=== PATIENT | male | born 1970 | race Caucasian/White ===

== ENCOUNTER 2017-12-06 12:18 | Emergency (ER) | payer BC ==
[~2017-12-06] VITALS: Ht 175.3 cm; Wt 92.6 kg
[~2017-12-06 12:18] MED LIST: ANT25 PO; [UNRECOGNIZED DRUG - CODE] OT
[2017-12-06 12:22] VITALS: TEMP 36.4; Ht 175.3 cm; Wt 92.6 kg
--- NOTE | 2017-12-06 12:34 | EMERGENCY ROOM VISIT NOTE ---
ED Visit Note First contact with patient: 12:33 CHIEF COMPLAINT: Headache HISTORY OF PRESENTING ILLNESS: This is a 47-year-old male who presents to the emergency department by private vehicle with his with complaints of left- sided headache for the past 2 weeks. Patient states his headache initially started after he went swimming and got some water in his left ear, he states that he shook his head vigorously to get the water out of his ear and then got a sharp pain in the left side of his head. He states the headaches have been intermittent, come and go, initially seemed to respond to ibuprofen, but became severely worse about a 4 days ago. Patient states they were on vacation and they have several physicians in their family, his wtjrcw-bf-fey prescribed him Augmentin which she started taking 6 days ago. He states about 4 days ago that the pain was very severe, and his adtozm-fv-dru prescribed him prednisone which he has been taking daily since Thursday. He states the prednisone seemed to help initially, but he is still getting headaches and pain on the left side of his face. He has pain under his left eye and his left cheek, and states he has felt stuffy on the left side of his face. He did take some Mucinex last night, which seemed to really help his symptoms, and his headache has continued to improve with ibuprofen. He describes the headache as a pressure and throbbing, on the left side of his face and head radiating across the top of his head, worse with activities such as bending over or straining to move his bowels, better with rest, currently rates as 2/10. He has had some associated nausea and dizziness intermittently, but denies any now. He does report a history of migraines as a child, but states he has not had any significant headaches for many years, and certainly none that have lasted this long. He states he is "here to find out what is wrong." He denies any fevers, chills, vision changes , neck pain or stiffness, vomiting, chest pain, shortness of breath, syncope, abdominal pain, back pain, diarrhea or constipation, bloody or black stools, urinary symptoms, or unusual rash. REVIEW OF SYSTEMS: A complete 10 point review of systems was reviewed with the patient with pertinent positives and negatives as per history of present illness. All else were negative. PAST MEDICAL HISTORY: History of migraines as a child, history of benign vertigo SOCIAL HISTORY: Lives at home with family. Denies tobacco use. ALLERGIES: No known allergies per PHYSICAL EXAM: CONSTITUTIONAL: Pleasant and cooperative. No acute distress. Well appearing and well nourished. HEENT: Normocephalic, atraumatic. Pupils equal, round and reactive to light, EOMI, normal conjunctivae bilaterally. Tenderness to percussion over the left maxillary sinus, no erythema or swelling appreciated. TMs normal bilaterally, ear canals normal bilaterally. Pharynx normal. Moist mucous membranes. Airway patent. NECK: Supple, full active range of motion without discomfort. No cervical adenopathy. No meningismus or nuchal rigidity. RESPIRATORY: Clear to auscultation bilaterally with no wheezing, crackles, rhonchi or stridor. Equal expansion bilaterally. CARDIOVASCULAR: Regular rate and rhythm with no murmurs, rubs or gallops. Normal peripheral perfusion. No edema. GASTROINTESTINAL: Soft, nontender, nondistended. No palpable masses or HSM. Bowel sounds present in all quadrants. MUSCULOSKELETAL: Full range of motion of all joints without discomfort. INTEGUMENTARY: No rash or other significant dermatologic conditions noted. NEUROLOGIC: Alert and oriented X 4 with normal affect. Cranial nerves II-XII grossly intact, no facial droop. No pronator drift. No focal neurologic deficits noted. 5/5 strength in all 4 extremities, sensation intact to light touch in all 4 extremities. Normal speech. Normal gait observed. Finger-nose- finger testing normal, negative Romberg. ED COURSE AND MEDICAL DECISION MAKING: CC: Patient presenting with complaint of headache DIFFERENTIAL DIAGNOSIS: Includes, but not limited to sinusitis, tension headache, migraine, intracranial hemorrhage, among others. INTERPRETATION OF LABS: Mild leukocytosis, no anemia, normal platelets, no significant electrolyte abnormalities, normal renal function, normal liver enzymes. Coagulation factors within normal limits. IMAGING: HEAD WITHOUT CONTRAST (CT) CLINICAL HISTORY: 47 years-old Male with headache x 2 weeks. Acute headache with sinus pressure TECHNIQUE: Multiple axial CT images of the head were obtained without contrast. A dose lowering technique was utilized adhering to the principles of ALARA. CT DOSE: 1122.62 mGy.cm COMPARISON: CT head 08/16/2014. FINDINGS: Subacute appearing subdural hematoma about the left cerebral convexity measures up to 7 mm in transverse dimension causing sulcal effacement and mass effect. There is 7.5 mm rightward midline shift. Partial effacement of the left atria and posterior horn left lateral ventricle. No intraventricular or intraparenchymal hemorrhage identified. Suprasellar cistern and quadrigeminal plate cistern appear preserved. No acute infarction or hydrocephalus. Bones appear to be intact. Mastoid air cells and middle ear cavities are clear. Soft tissues and orbits are within normal limits. IMPRESSION: Subacute subdural hematoma of the left cerebral convexity measures up to 7 mm in transverse dimension resulting in subfalcine herniation with 7.5 mm rightward midline shift. Additionally, there is partial effacement of the atria and posterior horn left lateral ventricle. Findings were discussed with Epseranza LIMON on 12/06/2017 at 2:20 PM. ----- SINUSES-MAXILLOFACIAL W/O HISTORY: 47 years-old Male left sided naik, sinus pressure acute left-sided headache with sinus pressure COMPARISON: CT head 12/06/2017 and 08/16/2014 TECHNIQUE: Multiple axial CT images of the maxillofacial bones were obtained without the use of IV contrast. A dose lowering technique was used consistent with the principals of ALARA. FINDINGS: Subacute hematoma of the left cerebral convexity redemonstrated measuring up to 7 mm in transverse dimension. Rightward midline shift of 7.5 cm. Soft tissues, scalp and orbits are within normal limits. No acute cervical spine fracture. Mastoid air cells and middle ear cavities are clear. Mild mucosal thickening of the ethmoid air cells and inferior frontal sinuses. Maxillary and sphenoid sinuses are generally patent. The sphenoethmoidal, and maxillary ostiomeatal recesses are patent. Mild mucosal thickening of the bilateral frontoethmoidal recesses, left greater than right. No Patricia cell. Lacey shameka appears normal. Mild rightward bowing and spurring of the nasal septum. No rtuh bullosa. No acute facial bone fracture or dislocation. Mandible appears intact. IMPRESSION: 1. Subacute subdural hematoma about the left cerebral convexity with midline shift. These findings are better seen and discussed on CT head of same day. 2. Mild ethmoid and inferior frontal sinus disease with mild thickening about the left greater than right frontoethmoidal recesses. The remaining paranasal sinuses and outflow tracts are generally patent. 3. No acute facial bone fracture or soft tissue swelling. MEDICATION RECONCILIATION: I attest that I have personally reviewed the patient 's current medication list. INITIAL VITAL SIGNS REVIEW: I reviewed the patient's initial vital signs and interpret them as follows: T: Afebrile; BP: Hypertensive; HR: Within normal limits; RR: Within normal limits; Pulse Ox: Within normal limits on room air. Blood pressure screening: The patient was found to have an elevated blood pressure, which was felt to be situational. SUMMARY: Patient was evaluated at bedside, history and physical exam performed. Patient is alert and oriented, no acute distress, resting calmly in the stretcher. Neurologic exam is normal with no focal deficits. There is tenderness to percussion over the left maxillary sinus. No evidence of otitis media or otitis externa on exam of the ears. Orders were placed at bedside for labs, IV fluids for hydration as a precaution , CT head and sinuses noncontrast to evaluate for headache. Patient discussed with Dr. Juarez, who agrees with my assessment and plan. Labs and imaging reviewed as above. I was informed over the phone by Dr. Hairston, radiologist, regarding the patient's subacute subdural hematoma on the left with midline shift. I did immediately make Dr. Juarez aware of these findings as well. I reassessed the patient, he states that his headache remains well controlled, and his neurologic exam remains stable with no focal deficits on reassessment. I did question the patient again regarding any trauma, he denies any recent known trauma. He denies regularly taking aspirin and is not on blood thinners. He denies any personal or family history of bleeding disorders. Patient reassessed multiple times throughout ED stay, he has remained stable, no change in his neuro exam or mental status. His blood pressure is stable. Patient was updated on all results and plan for transfer, he and his verbalized understanding and preferred to be transferred to [facility]. I spoke on the phone with Dr. Arrington, neurosurgery at [facility], who agrees to accept the patient as a transfer for direct admission to his service. The patient did request something for headache, IV morphine was ordered, as well as IV zofran to prevent nausea/vomiting. He is being kept NPO and placed on MIVF. Patient departing for transport at 5:15PM, stable at time of departure. CRITICAL CARE NOTE: I have personally spent greater than 30 minutes of critical care time in the direct management of this patient. This includes bedside care, interpretation of diagnostic studies, and testing, discussion with consultants, patient, and family members, and other required patient management activities. This 30 minutes is in excess of all separately billable procedures. Current/Historical Medications Scheduled Amoxicillin & Pot Clavulanate (Augmentin 875-125 mg), 1 TAB PO BID Dimenhydrinate (Dramamine), 1-2 TABS PO UD Loratadine (Claritin), 10 MG PO DAILY Prednisone (Prednisone), 1 TAB PO DAILY Scheduled PRN Uyrhndc-Znvzdjndhjdha-Aooalblx (Excedrin Migraine), 1 TAB PO UD PRN for Headache Ibuprofen (Advil), 400 MG PO UNKNOWN PRN for Headache or Pain Meclizine HCl (Meclizine HCl), 25 MG PO Q6H PRN for dizziness Metoclopramide Hcl (Reglan), 5 MG PO Q6 PRN for Nausea Phenylephrine-Diphenhydramine- (Mucinex Sinus-Max Day/Nig), 2 TABS PO Q12 PRN for CONGESTION/NAIK Triamcinolone Acetonide (Nasal (Nasacort Allergy 24Hr), 1 SPRAY SHIRLEY DAILY PRN for Allergic Reaction Allergies Coded Allergies: No Known Allergies (Unverified , 12/06/17) Vital Signs Date Time Temp Pulse Resp B/P (MAP) Pulse Ox O2 Delivery O2 Flow Rate FiO2 12/06/17 16:31 147/86 12/06/17 16:18 65 15 95 12/06/17 16:01 128/84 12/06/17 15:48 65 16 97 12/06/17 15:43 66 20 139/94 98 Room Air 12/06/17 15:43 139/94 12/06/17 15:18 71 27 97 12/06/17 14:59 74 22 137/87 98 Room Air 12/06/17 14:48 84 30 97 12/06/17 14:36 71 12/06/17 14:20 63 18 137/87 99 Room Air 12/06/17 14:20 137/87 12/06/17 12:22 36.4 72 18 145/99 97 Room Air Laboratory Results 12/06/17 13:00 Red Blood Count 5.12, Mean Corpuscular Volume 87.9, Mean Corpuscular Hemoglobin 30.3, Mean Corpuscular Hemoglobin Concent 34.4, Mean Platelet Volume 11.4, Neutrophils (%) (Auto) 64.9, Lymphocytes (%) (Auto) 23.2, Monocytes (%) (Auto) 9.2, Eosinophils (%) (Auto) 1.2, Basophils (%) (Auto) 0.3, Neutrophils # (Auto) 7.25, Lymphocytes # (Auto) 2.59, Monocytes # (Auto) 1.03, Eosinophils # (Auto) 0.13, Basophils # (Auto) 0.03 12/06/17 13:00 Test 12/06/17 13:00 White Blood Count 11.16 K/uL (4.8-10.8) Red Blood Count 5.12 M/uL (4.7-6.1) Hemoglobin 15.5 g/dL (14.0-18.0) Hematocrit 45.0 % (42-52) Mean Corpuscular Volume 87.9 fL (80-100) Mean Corpuscular Hemoglobin 30.3 pg (25-34) Mean Corpuscular Hemoglobin Concent 34.4 g/dl (32-36) Platelet Count 190 K/uL (130-400) Mean Platelet Volume 11.4 fL (7.4-10.4) Neutrophils (%) (Auto) 64.9 % Lymphocytes (%) (Auto) 23.2 % Monocytes (%) (Auto) 9.2 % Eosinophils (%) (Auto) 1.2 % Basophils (%) (Auto) 0.3 % Neutrophils # (Auto) 7.25 K/uL (1.4-6.5) Lymphocytes # (Auto) 2.59 K/uL (1.2-3.4) Monocytes # (Auto) 1.03 K/uL (0.11-0.59) Eosinophils # (Auto) 0.13 K/uL (0-0.5) Basophils # (Auto) 0.03 K/uL (0-0.2) RDW Standard Deviation 40.3 fL (36.4-46.3) RDW Coefficient of Variation 12.6 % (11.5-14.5) Immature Granulocyte % (Auto) 1.2 % Immature Granulocyte # (Auto) 0.13 K/uL (0.00-0.02) Prothrombin Time 10.1 SECONDS (9.0-12.0) Prothromb Time International Ratio 1.0 (0.9-1.1) Activated Partial Thromboplast Time 23.2 SECONDS (21.0-31.0) Partial Thromboplastin Ratio 0.9 Anion Gap 9.0 mmol/L (3-11) Est Creatinine Clear Calc Drug Dose 91.5 ml/min Estimated GFR () 90.5 Estimated GFR (Non- 78.1 BUN/Creatinine Ratio 15.7 (10-20) Calcium Level 8.7 mg/dl (8.5-10.1) Total Bilirubin 0.5 mg/dl (0.2-1) Aspartate Amino Transf (AST/SGOT) 20 U/L (15-37) Alanine Aminotransferase (ALT/SGPT) 42 U/L (12-78) Alkaline Phosphatase 71 U/L (45-117) Total Protein 7.3 gm/dl (6.4-8.2) Albumin 3.4 gm/dl (3.4-5.0) Globulin 3.9 gm/dl (2.5-4.0) Albumin/Globulin Ratio 0.9 (0.9-2) Medications Administered Medications (Trade) Dose Ordered Sig/Janet Route Start Time Stop Time Status Last Admin Dose Admin Sodium Chloride 1,000 ml @ 999 mls/hr Q1H1M STAT IV 12/06/17 12:48 12/06/17 13:48 DC 12/06/17 12:59 999 MLS/HR Sodium Chloride 1,000 ml @ 100 mls/hr Q10H STAT IV 12/06/17 15:44 12/07/17 01:43 12/06/17 15:58 100 MLS/HR Morphine Sulfate (MoRPHine SULFATE INJ) 4 mg NOW STAT IV 12/06/17 15:44 12/06/17 15:47 DC 12/06/17 15:57 4 MG Ondansetron HCl (Zofran Inj) 4 mg NOW STAT IV 12/06/17 15:44 12/06/17 15:46 DC 12/06/17 15:57 4 MG Departure Information Impression Primary Impression: Non-traumatic subacute subdural hematoma Additional Impression: Midline shift of brain due to hematoma Dispostion Transfer Acute Care Facility Condition [facility] Referrals No Doctor, Assigned (PCP) Patient Instructions [facility] Problem Qualifiers
[2017-12-06] MEDS ORDERED: SODIUM CHLORIDE 0.9% 1000ML 1,000 ML IV STA ×2 (12:48→15:44)
[2017-12-06 13:13] LABS: BASO % 0.3 %; BASO ABS # 0.03 K/uL (0-0.2); EOS % 1.2 %; EOS ABS # 0.13 K/uL (0-0.5); HEMOGLOBIN 15.5 g/dL (14.0-18.0); IG# 0.13 K/uL (0.00-0.02); LYMPH % 23.2 %; LYMPH ABS # 2.59 K/uL (1.2-3.4); MEAN CELL VOLUME 87.9 fL (80-100); MEAN CORPUSCULAR HEMOGLOBIN 30.3 pg (25-34); MEAN CORPUSCULAR HGB CONC 34.4 g/dl (32-36); MEAN PLATELET VOLUME 11.4 fL (7.4-10.4); MONO % 9.2 %; MONO ABS # 1.03 K/uL (0.11-0.59); NEUT % 64.9 %; NEUT ABS # 7.25 K/uL (1.4-6.5); PLATELET COUNT 190 K/uL (130-400); RED CELL DISTRIBUTION WIDTH CV 12.6 % (11.5-14.5); RED CELL DISTRIBUTION WIDTH SD 40.3 fL (36.4-46.3); WHITE BLOOD COUNT 11.16 K/uL (4.8-10.8)
[2017-12-06 13:32] LABS: ALBUMIN 3.4 gm/dl (3.4-5.0); CALCIUM 8.7 mg/dl (8.5-10.1); CREATININE 1.11 mg/dl (0.60-1.40)
[2017-12-06 13:37] LABS: TOTAL PROTEIN 7.3 gm/dl (6.4-8.2)
[2017-12-06 13:59] LABS: POTASSIUM 3.7 mmol/L (3.5-5.1)
--- NOTE | 2017-12-06 14:24 | DIAGNOSTIC IMAGING REPORT ---
HEAD WITHOUT CONTRAST (CT) CLINICAL HISTORY: 47 years-old Male with headache x 2 weeks. Acute headache with sinus pressure TECHNIQUE: Multiple axial CT images of the head were obtained without contrast. A dose lowering technique was utilized adhering to the principles of ALARA. CT DOSE: 1122.62 mGy.cm COMPARISON: CT head 08/16/2014. FINDINGS: Subacute appearing subdural hematoma about the left cerebral convexity measures up to 7 mm in transverse dimension causing sulcal effacement and mass effect. There is 7.5 mm rightward midline shift. Partial effacement of the left atria and posterior horn left lateral ventricle. No intraventricular or intraparenchymal hemorrhage identified. Suprasellar cistern and quadrigeminal plate cistern appear preserved. No acute infarction or hydrocephalus. Bones appear to be intact. Mastoid air cells and middle ear cavities are clear. Soft tissues and orbits are within normal limits. IMPRESSION: Subacute subdural hematoma of the left cerebral convexity measures up to 7 mm in transverse dimension resulting in subfalcine herniation with 7.5 mm rightward midline shift. Additionally, there is partial effacement of the atria and posterior horn left lateral ventricle. Findings were discussed with Esperanza LIMON on 12/06/2017 at 2:20 PM. The above report was generated using voice recognition software. It may contain grammatical, syntax or spelling errors. Electronically signed by: Delvin Hairston M.D. 12/06/2017 2:23 PM Dictated Date/Time: 12/06/2017 2:18 PM
[2017-12-06] MEDS ORDERED: DIME50TA49 PO (14:41)
[2017-12-06] MEDS ORDERED: IBUP-1050 PO (14:41)
[2017-12-06] MEDS ORDERED: PHEN1MIS PO (14:41)
[2017-12-06] MEDS ORDERED: CLR10 PO (14:41)
[2017-12-06] MEDS ORDERED: METO1TAB54 PO (14:41)
[2017-12-06] MEDS ORDERED: PRED20TA PO (14:41)
[2017-12-06] MEDS ORDERED: TRIA1SPR4 NAE (14:41)
[2017-12-06] MEDS ORDERED: AMOX875T PO (14:41)
[2017-12-06] MEDS ORDERED: ASPI-390 PO (14:41)
--- NOTE | 2017-12-06 14:45 | DIAGNOSTIC IMAGING REPORT ---
SINUSES-MAXILLOFACIAL W/O HISTORY: 47 years-old Male left sided arvizu, sinus pressure acute left-sided headache with sinus pressure COMPARISON: CT head 12/06/2017 and 08/16/2014 TECHNIQUE: Multiple axial CT images of the maxillofacial bones were obtained without the use of IV contrast. A dose lowering technique was used consistent with the principals of RAMONRA. FINDINGS: Subacute hematoma of the left cerebral convexity redemonstrated measuring up to 7 mm in transverse dimension. Rightward midline shift of 7.5 cm. Soft tissues, scalp and orbits are within normal limits. No acute cervical spine fracture. Mastoid air cells and middle ear cavities are clear. Mild mucosal thickening of the ethmoid air cells and inferior frontal sinuses. Maxillary and sphenoid sinuses are generally patent. The sphenoethmoidal, and maxillary ostiomeatal recesses are patent. Mild mucosal thickening of the bilateral frontoethmoidal recesses, left greater than right. No Patricia cell. Lacey shameka appears normal. Mild rightward bowing and spurring of the nasal septum. No ruth bullosa. No acute facial bone fracture or dislocation. Mandible appears intact. IMPRESSION: 1. Subacute subdural hematoma about the left cerebral convexity with midline shift. These findings are better seen and discussed on CT head of same day. 2. Mild ethmoid and inferior frontal sinus disease with mild thickening about the left greater than right frontoethmoidal recesses. The remaining paranasal sinuses and outflow tracts are generally patent. 3. No acute facial bone fracture or soft tissue swelling. The above report was generated using voice recognition software. It may contain grammatical, syntax or spelling errors. Electronically signed by: Delvin Hairston M.D. 12/06/2017 2:44 PM Dictated Date/Time: 12/06/2017 2:39 PM
[2017-12-06 14:51] LABS: PTT PATIENT 23.2 SECONDS (21.0-31.0)
[2017-12-06] MEDS ORDERED: MoRPHine SULFATE 4 MG/ML 1 ML CARP\\VIAL IV STA (15:44)
[2017-12-06] MEDS ORDERED: ONDANSETRON INJ 2 MG/ML 2 ML VIAL IV STA (15:44)
--- NOTE | 2017-12-06 17:11 | EMERGENCY ROOM VISIT NOTE ---
ED Visit Note First contact with patient: 12:33 Staff note: I have reviewed the Patients chart and have discussed this case with my PA. I generally agree with the ED note and findings.
[2017-12-06 17:12] VITALS: BP 158/92; PULSE 68; O2SAT 97
== END 2017-12-06 17:24 | disposition short-term general hospital (02) ==
LOC: C.EDB 12:18
DX: I62.02 Nontraumatic subacute subdural hemorrhage (principal); R51 Headache; Z86.69 Personal history of other diseases of the nervous system and sense organs

== ENCOUNTER 2018-07-29 05:42 | Inpatient (IN) ==
--- NOTE | 2018-07-14 14:30 | Anesthesiology Consultation ---
Date of Service July 14, 2018 Assessment & Plan (1) Encounter for pre-operative examination: Chart Review Chart Review: Acceptable Risk for Surgery and Patient seen in Pre Admission Testing Consults Requested none Teaching & Discussion Pre-Anesthesia Teaching/Discussion Notes: Instructed NPO after midnight before surgery, except medications with 15 cc of water. Medication instructions provided according to the PAT guidelines. History Surgery Operation Date: 07/29/18 07:30 Proposed Procedures p Robotic Laparscopic Assisted Radical Prostatectomy - Ashish Cosme MD Height/Weight Height: 5 ft 9.5 in Weight: 92.1 kg Allergies Allergy/AdvReac Type Severity Reaction Status Date / Time paroxetine AdvReac Mild Nausea Verified 07/09/18 15:36 /vertigo Medications Home Medications Medication Instructions Recorded Confirmed Last Taken Meclizine HCl 25 mg PO Q6H PRN #30 tab 08/18/14 07/09/18 Unknown Ibuprofen (Advil) 400 mg PO BID PRN #0 tab 12/06/17 07/09/18 Unknown calcium carb 300 mg-D3 800 1 tab PO QAM 06/10/18 07/09/18 Unknown unit-mag ox 25 mg-asbestos microscopist 0.5 mg-silvio-Zn tablet sertraline 25 mg tablet 50 mg PO QAM tab 06/10/18 07/09/18 Unknown gabapentin 300 mg PO HS 07/09/18 07/09/18 Unknown omega 9-jhh-pvn-fish oil [Fish Oil] 1 cap PO QAM 07/09/18 07/09/18 Unknown vitamin E 1 dose PO QAM 07/09/18 07/09/18 Unknown Past Medical History Medical History Prostate cancer (Acute) Diagnosed 05/03/18 - Anh 4+5 Anxiety (Chronic) Lyme disease (Chronic) treated Depression 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 (PT DOES NOT REMEMBER HITTING HEAD?) - SPONTANEOUSLY RESOLVED W/O INTERVENTION - CLEARED BY NEURO (STATES HE WAS INSTRUCTED BY NEURO TO INFORM MEDICAL STAFF THAT THIS WAS NOT AN ANEURYSM) Past Surgical History Surgical History History of prostate biopsy (Resolved) 05/03/18 History of vasectomy (Resolved) History of tooth extraction Past Anesthesia History No Hx of Anesthesia Complications and No Family Hx of Anesthesia Complications History of PONV No Motion Sickness Screening History of Motion Sickness: No Social History Smoking Status: Never smoker tobacco type: smokeless tobacco (Quit 10 years ago) Do You Dip or Chew Tobacco: No Hx Alcohol Use: Yes Alcohol type: beer and hard liquor alcohol intake frequency: a few times a week Hx Substance Use: No substance use type: does not use Exercise / Class Metabolic Activity II 4-5 Yardwork/Stairs/Walk up hill (~12K steps per day. Coaches basketball. teacher early childhood development. Able to climb FOS. Denies CP or SOB. ) Review of Systems Patient denies chest pain, shortness of breath, dyspnea on exertion, joint pain, reflux, cough, wheezing, palpitations. Physical Exam Vital Signs BP: 129/84 P: 67 R: 16 T: 98.3 SPO2: 99% on RA ENMT Thyromental Distance: > or= 3.5 Finger Breadths (3.5) Mallampati Class: II Partial on top and bottom Neck normal visual inspection, trachea midline and + facial hair (Advised); neck extension not limited Respiratory normal respiratory effort Auscultation: lungs clear to auscultation bilaterally Cardiovascular Rate/Rhythm: regular rate and regular rhythm Heart Sounds: no murmur Vessels: no carotid bruit Neurologic moves all extremities Psychiatric Orientation: alert and oriented x 3 Testing Electrocardiogram Date: 07/14/18 Findings: + SB @ (59) and + no change from (08/16/14) Chest X-Ray Date: 07/14/18 Findings: + NAD Laboratory Results 07/14/18 14:51 07/14/18 14:51 Blood Type B Positive 07/14/18 14:51 Antibody Screen NEGATIVE 07/14/18 14:51 Urine Color Yellow 07/14/18 14:51 Urine Appearance Clear (Clear) 07/14/18 14:51 Urine pH 5.0 (4.5-7.5) 07/14/18 14:51 Ur Specific [place] 1.015 (1.000-1.030) 07/14/18 14:51 Urine Protein Negative (Negative) 07/14/18 14:51 Urine Glucose (UA) Negative (Negative) 07/14/18 14:51 Urine Ketones Negative (Negative) 07/14/18 14:51 Urine Nitrite Negative (Negative) 07/14/18 14:51 Ur Leukocyte Esterase Negative (Negative) 07/14/18 14:51 07/14/18 14:51 Urine Culture - Preliminary Urine,Clean Catch No growth - Less than 1,000 colonies/mL, Final report to follow.
--- NOTE | 2018-07-14 14:39 | PAT Medication Instructions ---
Medication Instructions Date of Service July 14, 2018 Home Medications Medication Instructions Recorded Meclizine HCl 25 mg PO Q6H PRN #30 tab 08/18/14 Ibuprofen (Advil) 400 mg PO BID PRN calcium carb 300 mg-D3 800 1 tab PO QAM sertraline 25 mg tablet 50 mg PO QAM gabapentin 300 mg PO HS omega 0-bev-ymj-fish oil [Fish Oil] 1 cap PO QAM vitamin E 1 dose PO QAM ASK your surgeon for instructions Ibuprofen (Advil) 400 mg PO BID NEEDED - hold 7 days prior to surgery STOP taking 2 weeks before surgery calcium carb 300 mg-D3 800 1 tab PO QAM omega 7-ygp-mja-fish oil [Fish Oil] 1 cap PO QAM vitamin E 1 dose PO QAM Take morning of surgery With a small sip of water, OTHERWISE NOTHING TO EAT OR DRINK AFTER MIDNIGHT: sertraline 25 mg tablet 50 mg PO QAM Take evening before surgery gabapentin 300 mg PO HS Other Notes If you have any questions please call us at [phone] or [phone] or [phone] or [phone]
--- NOTE | 2018-07-14 15:28 | XRay Report ---
XR chest Pre-admission PA/Lat CLINICAL HISTORY: Preoperative chest COMPARISON STUDY: August 16, 2014 FINDINGS: The cardiac and mediastinal contours are normal. There is no evidence of focal pulmonary co nsolidation. There is no evidence of failure. No pleural effusions are visualized.[ IMPRESSION: No active disease in the chest. Electronically signed by: Jac Armstrong M.D. 07/14/2018 3:27 PM
[2018-07-14 15:29] LABS: Appearance Urine Clear (Clear); Basophils # (auto) 0.02 K/uL (0-0.2); Basophils % (auto) 0.3 %; Bilirubin Urine Negative (Negative); Blood Urine Negative (Negative); Color Urine Yellow; Eosinophils # (auto) 0.11 K/uL (0-0.5); Eosinophils % (auto) 1.4 %; Glucose Urine UA Negative (Negative); Hematocrit (blood only) 43.2 % (42-52); Hemoglobin 14.9 g/dL (14.0-18.0); Immature Granulocytes # (auto) 0.03 K/uL (0.00-0.02); Immature Granulocytes % (auto) 0.4 %; Ketones Urine Negative (Negative); Leukocyte Esterase Urine Negative (Negative); Lymphocytes # (auto) 2.28 K/uL (1.2-3.4); Lymphocytes % (auto) 28.6 %; Mean Corpuscular Hgb Conc 34.5 g/dL (32-36); Mean Corpuscular Volume 86.2 fL (80-100); Mean Platelet Volume 12.1 fL (7.4-10.4); Monocytes # (auto) 0.77 K/uL (0.11-0.59); Monocytes % (auto) 9.7 %; Neutrophils # (auto) 4.75 K/uL (1.4-6.5); Neutrophils % (auto) 59.6 %; Nitrite Urine Negative (Negative); Platelet Count 155 K/uL (130-400); Protein Urine Negative (Negative); RDW Coefficient of Variation 12.8 % (11.5-14.5); RDW Standard Deviation 40.4 fL (36.4-46.3); Red Blood Count 5.01 M/uL (4.7-6.1); Specific Gravity Urine 1.015 (1.000-1.030); Urobilinogen Urine Negative (Negative); White Blood Count 7.96 K/uL (4.8-10.8)
[2018-07-14 15:36] LABS: BUN Creatinine Ratio 17.6 (10-20); Calcium 8.8 mg/dl (8.5-10.1); Creatinine Clr Calc Pharmacy 108.7 ml/min; Est GFR (African American) 111.3; Est GFR (Non-African American) 96.1; Potassium 3.9 mmol/L (3.5-5.1)
[2018-07-14 15:41] LABS: Prostate Specific Antigen 17.9 ng/ml (0-4)
[~2018-07-29 05:42] MED LIST changes: -ANT25 PO; +CEFAZOLIN 2000MG 2,000 MG/15 ML SYR IV SCH; -[UNRECOGNIZED DRUG - CODE] OT
[2018-07-29] MEDS ORDERED: LACTATED RINGER'S 1,000 ML IV SCH (06:00)
[2018-07-29] MEDS ORDERED: LR 15ML/HR IV SCH (06:00)
[2018-07-29] MEDS ORDERED: HEPARIN SOD 5,000 UNIT/0.5 ML VIAL SQ SCH (06:00)
[2018-07-29] MEDS ORDERED: ACETAMINOPHEN 1000 MG/100 ML IV IV SCH (06:00)
[2018-07-29] MEDS ORDERED: CEFAZOLIN 2,000 MG/15 ML IV PUSH IV ONE (06:48)
[2018-07-29] MEDS ORDERED: KETOROLAC 30 MG/ML VIAL IV PRN (07:05)
[2018-07-29] MEDS ORDERED: ATROPINE SULFATE 0.1 MG/ML 10ML SYR IV PRN (07:05)
[2018-07-29] MEDS ORDERED: LABETALOL HCL IV 5 MG/ML 20ML IV PRN (07:05)
[2018-07-29] MEDS ORDERED: ONDANSETRON INJ 2 MG/ML 2 ML VIAL IV PRN ×2 (07:05→14:11)
--- NOTE | 2018-07-29 07:05 | History & Physical Bridge Note ---
Date of Service July 29, 2018 History & Physical Bridge Note I have examined the patient, reviewed the History & Physical and in the interval since the performance of the History & Physical I have noted the following changes of clinical significance: no changes noted
[2018-07-29] MEDS ORDERED: LIDOCAINE HCL 2% 2 ML VIAL/AMP(20MG/ML) INFIL ONE (07:16)
[2018-07-29] MEDS ORDERED: NEOSTIGMINE METHYLSULFATE 5 MG/5 ML SYR ONE (07:16)
[2018-07-29] MEDS ORDERED: ePHEDrine sulfate 50 MG/ML AMP ONE (07:16)
[2018-07-29] MEDS ORDERED: fentaNYL citrate 100 MCG/2 ML VIAL ONE ×2 (07:16→10:58)
[2018-07-29] MEDS ORDERED: DEXAMETHASONE SOD INJ 4 MG/ML VIAL ONE ×2 (07:16→11:52)
[2018-07-29] MEDS ORDERED: SUCCINYLCHOLINE CHLORIDE 20 MG/ML 10 ML VIAL ONE (07:16)
[2018-07-29] MEDS ORDERED: ONDANSETRON INJ 2 MG/ML 2 ML VIAL ONE ×2 (07:16→11:52)
[2018-07-29] MEDS ORDERED: PROPOFOL IV EMULSION 10 MG/ML 20 ML VIAL IV ONE (07:16)
[2018-07-29] MEDS ORDERED: MIDAZOLAM HCL 1 MG/ML 2ML VIAL ONE (07:16)
[2018-07-29] MEDS ORDERED: PHENYLEPHRINE HCL 10 MG/ML VIAL ONE (07:16)
[2018-07-29] MEDS ORDERED: GLYCOPYRROLATE 0.2 MG/ML VIAL ONE (07:16)
[2018-07-29] MEDS ORDERED: BUPIVACAINE 0.5 % 5 MG/1 ML MPF 30ML VIAL ONE (07:25)
[2018-07-29] MEDS ORDERED: HYDROmorphone INJ 2 MG/ML SYR/VIAL ONE (08:03)
[2018-07-29] MEDS ORDERED: ROCURONIUM BROMIDE 10 MG/ML 5 ML VIAL ONE (10:15)
[2018-07-29] MEDS ORDERED: CISATRACURIUM BESYLATE IV SOLN 2 MG/ML 10 ML VIAL IV ONE (10:15)
[2018-07-29] MEDS ORDERED: FLOSEAL HEMOSTATIC MATRIX 10ML TOP ONE (11:25)
--- NOTE | 2018-07-29 12:17 | Operative Report ---
Post Operative Report Pre & Post Diagnosis Operation Date: 07/29/18 07:30 Pre-Op Diagnosis: Prostate Cancer Post-Op Diagnosis: Prostate Cancer Procedure Operation Date: 07/29/18 07:30 Actual Procedures p Robotic-Assisted Laparoscopic Radical Prostatectomy with wide excision, bilateral pelvic lymph node dissection, placement of suprapubic catheter(Not Applicable) - Ashish Cosme MD Surgeon Ashish Cosme MD Marble Setter Helper BRAXTON Corley Estimated Blood Loss 150 Findings Consistent with Post-Op Diagnosis Specimens Periprostatic fat, prostate plus seminal vesicles, right periprosatic tissue, left nelsy-prostatic tissue, left bladder neck tissue, left pelvic lymph nodes, right pelvic lymph nodes Description of Procedure Robot-assisted laparoscopic radical retropubic prostatectomy with wide dissection, bilateral pelvic lymph node dissection, suprapubic tube placement. I attest to the content of the Intraoperative Record and any orders documented therein. Any exceptions are noted below.
[2018-07-29 12:52] LABS: Basophils # (auto) 0.01 K/uL (0-0.2); Basophils % (auto) 0.1 %; Hematocrit (blood only) 40.2 % (42-52); Hemoglobin 13.9 g/dL (14.0-18.0); Immature Granulocytes # (auto) 0.06 K/uL (0.00-0.02); Immature Granulocytes % (auto) 0.5 %; Lymphocytes # (auto) 0.65 K/uL (1.2-3.4); Lymphocytes % (auto) 5.9 %; Mean Corpuscular Volume 86.5 fL (80-100); Mean Platelet Volume 11.4 fL (7.4-10.4); Monocytes # (auto) 0.18 K/uL (0.11-0.59); Monocytes % (auto) 1.6 %; Neutrophils % (auto) 91.9 %; Platelet Count 151 K/uL (130-400); RDW Coefficient of Variation 12.7 % (11.5-14.5); RDW Standard Deviation 40.6 fL (36.4-46.3); Red Blood Count 4.65 M/uL (4.7-6.1)
[2018-07-29 12:55] LABS: Mean Corpuscular Hgb Conc 34.6 g/dL (32-36)
[2018-07-29] MEDS: HYDROmorphone INJ 1 MG/ML SYRINGE IV PRN ×4 (12:55→13:10)
[2018-07-29] MEDS ORDERED: HYDROmorphone INJ 1 MG/ML SYRINGE ONE (12:57)
[2018-07-29 13:12] LABS: Calcium 8.4 mg/dl (8.5-10.1); Creatinine Clr Calc Pharmacy 71.6 ml/min; Est GFR (African American) 67.3; Est GFR (Non-African American) 58.1; Potassium 4.6 mmol/L (3.5-5.1)
--- NOTE | 2018-07-29 13:30 | Anesthesiology Progress Note ---
Date of Service July 29, 2018 Anesthesia Post Procedure Vital Signs Vital Signs: Temp Pulse Pulse Resp BP Pulse Ox 07/29/18 13:15 92 H 20 160/87 H 99 07/29/18 13:05 78 15 166/90 H 94 07/29/18 12:55 82 14 152/82 H 94 07/29/18 12:45 86 30 H 152/78 H 100 07/29/18 12:35 80 21 123/69 100 07/29/18 12:27 36.4 C L 94 H 16 137/86 99 07/29/18 06:02 36.5 C 67 18 153/98 H 97 Pain Intensity Abdomen: Pain Intensity: 3 Notes Mental Status: alert / awake / arousable Patient Amnestic to Procedure: Yes Nausea / Vomiting: adequately controlled Pain: adequately controlled Airway Patency, RR, SpO2: stable & adequate BP & HR: stable & adequate Hydration State: stable & adequate Anesthetic Complications: no major complications apparent
[2018-07-29] MEDS ORDERED: ACETAMINOPHEN 1,000 MG/100 ML VIAL IV PRN (14:11)
[2018-07-29] MEDS ORDERED: MoRPHine SULFATE 10 MG/ML CARP/VIAL IV PRN (14:11)
[2018-07-29] MEDS: LACTATED RINGER'S 1,000 ML IV SCH ×2 (16:27→17:38)
[2018-07-29] MEDS: CEFAZOLIN 2000MG 2,000 MG/15 ML SYR IV SCH ×2 (16:35→23:34)
[2018-07-29] MEDS: OXYCODONE HCL IR 5 MG TAB (IMMEDIATE RELEASE) PO PRN ×2 (19:27→20:34)
[2018-07-29] MEDS: HEPARIN SOD 5,000 UNIT/0.5 ML VIAL SQ SCH (20:29)
[2018-07-29] MEDS: DOCUSATE SODIUM 100 MG CAP PO SCH (20:30)
[2018-07-29] MEDS: FAMOTIDINE 20 MG in SYRINGE 3 ML IV SCH (20:34)
--- NOTE | 2018-07-30 02:31 | Operative Report ---
DATE OF OPERATION: 07/29/2018 PREOPERATIVE DIAGNOSIS: Clinical T3b N1 Anh 4+5 adenocarcinoma of the prostate with a pretreatment PSA of 241, status post androgen deprivation for approximately 2 months. POSTOPERATIVE DIAGNOSIS: Same. PROCEDURE: Robot-assisted laparoscopic radical retropubic prostatectomy with wide excision, bilateral pelvic lymph node dissection, and suprapubic tube placement. SURGEON: Ashish Cosme MD HUMANITIES COORDINATOR: BRAXTON Chiu. Outdoor Studies Professor was present throughout the case for passage of instruments, retraction of tissues, passage of sutures and specimen bags, suction, and general patient safety. ANESTHESIA: General anesthesia with endotracheal intubation plus local at all port sites. DRAINS LEFT IN PLACE: Include an 18-Malagasy latex Olivarez per urethra with 10 mL of sterile water in the balloon, 16-Malagasy silicone suprapubic tube with 10 mL of sterile water in the balloon, and a #10 SUSAN drain in the left lower quadrant. SPECIMENS SENT TO PATHOLOGY: Periprostatic fat, prostate plus seminal vesicles, right periprostatic tissue, left periprostatic tissue, left bladder neck tissue, left pelvic lymph nodes, right pelvic lymph nodes. INTRAVENOUS FLUIDS: 2500 mL of crystalloid. FINDINGS: Watertight urethrovesical anastomosis with excellent urethra and bladder neck. No evidence of rectal injury on insufflation under saline irrigation, no injury to the vasculature or obturator nerves. Wide dissection taken lateral to the rectum on the patient's right hand side at the site of PET scan positive node. Excellent hemostasis. COMPLICATIONS: None. BRIEF HISTORY: Mr. Martinez is an unfortunate 48-year-old male who presented with obstructive voiding symptoms, found to have a PSA of approximately 250 with an indurated nodular prostate on the right hand side. Please see H and P for further details. The patient has several areas of PET-positive local regional nodes with a questionable skip metastasis to the seminal vesicle versus perirectal node on the right hand side. Findings have been reviewed with the patient and in tumor board with his fellow providers. The plan for the patient to assist with tumor debulking and local control is to proceed with a wide excision of his pelvic tumor and prostate followed by androgen deprivation and external beam radiation therapy in the future. The patient has received degarelix for 2 months prior to the OR. He understands the impact this may have on his pathologic interpretation and dissection. The fact that a wide non nerve sparing dissection with expected resultant impotence is going to be undertaken has been reviewed with the patient and preoperatively. Intravenous Ancef was provided for antibiotic coverage as well as intravenous Tylenol for analgesia. SCDs and heparin are used for DVT prophylaxis. Consent was reviewed with the patient preoperatively today. DESCRIPTION OF PROCEDURE: The patient was properly identified and brought into the operative suite after identification of appropriate consent on the chart. General anesthesia with endotracheal intubation was initiated. The patient was prepped and draped in the standard fashion for this procedure. multimedia instructional designer-out procedure was followed. All port sites were anesthetized with local prior to incision. A transverse supraumbilical incision was made and the abdomen was entered under direct visualization using a visual obturator and a 0-degree laparoscope. Abdomen was insufflated to 15 mmHg and ports were placed for a 4th arm robotic template including 2 left-sided 7-mm robotic ports, 1 right-sided 7-mm robotic port, and a right-sided 5- and 12-mm pharmacy assistant port. The patient was placed in Trendelenburg and robot was brought in and docked. A 0-degree lens was used to drop the bladder down to the level of the pubic bone. The patient was noted to have inflammation in the pelvis and periprostatic tissues felt to be consistent with the effect from his hormone deprivation. The fat overlying the prostate gland was widely dissected free to the pelvic sidewall on both sides and sent as periprostatic fat. The endopelvic fascia was sharply entered on both sides and the dorsal venous complex was skeletonized down to the level of the apex of the prostate. An 0 Vicryl suture on a CT1 needle was used to control the dorsal venous complex. The bladder neck was then divided with a rim of bladder neck tissue being left on the prostate gland until the Olivarez catheter was encountered. This was grasped and cephalad traction was provided via the fourth arm by placing the prostate on tension. Posterior bladder neck was divided and dropped in the midline. Again, inflammatory changes to the tissues were appreciated. Vessel sealer was used to take the prostatic pedicles on both sides. The dissection on the left hand side was felt to be somewhat close to the prostate gland and an additional portion of tissue was taken from this side further down the vascular pedicle and sent separately as right bladder neck tissue. A non nerve sparing dissection was taken on both sides down to the level of the vas deferens and the seminal vesicles in the midline. Great care was taken to avoid any injury to the rectum and caution was taken of the posterior plane. The vas deferens were dissected free distally and then divided. Seminal vesicles were dissected carefully to their tips and then brought up with the prostate gland. The adherent perirectal serosal fibers were cautiously divided from the prostate gland posterior in the midline. Dissection was continued and carried out toward the level of the apex of the prostate on both sides. The dorsal venous complex was divided using hot scissors, but unfortunately due to some induration of the tissue, the suture was divided as well. Some oozing from the dorsal venous complex required replacement of a [id number] suture after the urethra had been well skeletonized and removed from the plane of dissection. The apex was dissected free on both sides of the urethra which was then divided in the midline with a good urethral length. Care was taken at the apical margin to avoid leaving any residual prostate tissue and then the remaining rectourethralis fibers which again were noted to be quite adherent were divided cautiously on both sides and in the midline until the prostate was free. Excellent hemostasis was appreciated within the pelvis. Prostate with copious periprostatic tissue was brought up into the abdominal cavity where it was placed within the EndoCatch bag for retrieval at the end of the case. Inspection of the PET scan demonstrated that deep tissue on the right hand side was PET positive. The rectum was insufflated under saline irrigation and noted to be free of any injury at this portion of the case. The rectum was left partially insufflated and the perirectal tissues on the right hand side were dissected free and sent as right periprostatic tissue. There was some residual tissue on the left hand side that was also dissected free in a similar fashion. Again, the rectum was tested and verified to be free of any injury. The rectum was then desufflated through the previously placed rectal tube. Attention was then turned to the pelvic lymph node dissection on both sides. The external iliac vessels and pelvic sidewall were used as planes of dissection and this was carried down to the bifurcation of the iliac vessels on both sides. The obturator nerve was skeletonized with care being taken to avoid any injury. More bulky tissue was appreciated on the right hand side which was felt to be consistent with the patient's preoperative imaging. Weck clips had been used throughout the dissection for control of small vessels and larger lymphatics. After this was complete on both sides, the left handed lymph node packet was marked with a clip and the various lymph tissues were placed within the second EndoCatch bag for retrieval at the end of the case. The pelvis was inspected and again excellent hemostasis was appreciated. FloSeal tissue sealant was placed over the prostatic bed and in both obturator fossa and pelvic nodes bilaterally. Attention was then turned to the urethrovesical anastomosis which was performed circumferentially using a double armed V-Loc suture. Excellent urethral stump was again appreciated. Olivarez catheter was visualized entering the bladder prior to completion of the closure. A 10 mL of sterile water were placed within the Olivarez catheter and bladder was tested with greater than 120 mL with excellent watertight anastomosis with no leaks being present. Seeing the excellent appearance of the anastomosis, the patient was felt to be a candidate for suprapubic catheter drainage in the postoperative period. A small supraumbilical incision was made and a suprapubic catheter kit was advanced via this incision down into the pelvis under direct visualization. This was entered into the bladder and a 16-Malagasy silicone catheter was passed via the trocar with drainage of clear irrigant. A 10 mL of sterile water were placed within this balloon. Both catheters were tested and noted to have the balloons intact and able to be irrigated from one catheter through the other. After this was complete, both catheters were placed to gravity drainage. Robotic fourth arm was removed and a #10 SUSAN drain was placed via the fourth arm port. This was placed within the confines of the pelvis while avoiding placing it directly over the anastomosis. Robotic instruments were removed and robot was dedocked. Strings to the EndoCatch bag were brought up through the supraumbilical incision. This was enlarged over the trocar to allow for easy passage of the specimen bags. All ports were removed and excess carbon dioxide gas was removed from the abdomen. The supraumbilical incision was closed using an 0 Vicryl suture on a UR-5 needle. Subcutaneous tissues of the supraumbilical incision was closed using 3-0 Vicryl and skin was closed at all sites using 4-0 Monocryl and Dermabond. Suprapubic tube and #10 SUSAN drain was secured in place using a 2-0 silk suture. Drain sponges were placed and catheters were placed to gravity drainage. SUSAN drain was placed to bulb suction. Anesthesia was reversed. The patient was transferred to the recovery room in stable condition. FOLLOWUP CARE: The patient will be admitted to the floor for standard postoperative management. I attest to the content of the Intraoperative Record and any orders documented therein. Any exception s are noted below.
[2018-07-30] MEDS: LACTATED RINGER'S 1,000 ML IV SCH (03:48)
[2018-07-30] MEDS: OXYCODONE HCL IR 5 MG TAB (IMMEDIATE RELEASE) PO PRN ×3 (05:11→14:23)
[2018-07-30 05:48] LABS: BUN Creatinine Ratio 11.6 (10-20); Calcium 8.3 mg/dl (8.5-10.1); Creatinine Clr Calc Pharmacy 97.1 ml/min; Est GFR (African American) 97.3; Est GFR (Non-African American) 83.9; Potassium 4.1 mmol/L (3.5-5.1)
[2018-07-30 06:42] LABS: Basophils # (auto) 0.01 K/uL (0-0.2); Basophils % (auto) 0.1 %; Eosinophils # (auto) 0.02 K/uL (0-0.5); Eosinophils % (auto) 0.2 %; Hematocrit (blood only) 36.9 % (42-52); Hemoglobin 12.7 g/dL (14.0-18.0); Immature Granulocytes # (auto) 0.03 K/uL (0.00-0.02); Immature Granulocytes % (auto) 0.3 %; Lymphocytes # (auto) 1.41 K/uL (1.2-3.4); Lymphocytes % (auto) 13.3 %; Mean Corpuscular Hgb Conc 34.4 g/dL (32-36); Mean Corpuscular Volume 86.6 fL (80-100); Mean Platelet Volume 12.3 fL (7.4-10.4); Monocytes # (auto) 1.19 K/uL (0.11-0.59); Monocytes % (auto) 11.2 %; Neutrophils # (auto) 7.98 K/uL (1.4-6.5); Neutrophils % (auto) 74.9 %; Platelet Count 160 K/uL (130-400); RDW Coefficient of Variation 12.9 % (11.5-14.5); Red Blood Count 4.26 M/uL (4.7-6.1); White Blood Count 10.64 K/uL (4.8-10.8)
--- NOTE | 2018-07-30 08:47 | Urology Progress Note ---
Date of Service July 30, 2018 Assessment & Plan (1) Prostate cancer: A/P 48 yo male POD#1 s/p RALRP, BPLND and SPT for high grade, locally advance prostate cancer. Healing well. Expected postop course reviewed. Prefers to keep SPT - will remove celestin this AM. Advance diet and activity. If does well, DC SUSAN and DC home after lunch. HTIVF - taking good PO. DC instructions reviewed, outpatient f/u as planned. (2) Prostate cancer: Subjective Patient is POD#1 s/p RALRP, BPLND, SPT placement. He was ambulatory in halls yesterday, taking clears, no f/c/n/v. Pain is controlled with meds, in good spirits. Labs noted, bump in Cr resolved. Acceptable SUSAN output, no other complaints. Daughter in room this AM. He note some R back pain, likely positional from OR. Constitutional: no fever and no chills Eyes: no blind spots Ear, Nose, Mouth, Throat: no ear pain Respiratory: no cough and no hemoptysis Cardiovascular: no chest pain Gastrointestinal: + abdominal pain (controlled); no nausea and no vomiting Genitourinary (Male): + hematuria (improving, minimal) Musculoskeletal: + back pain Neurologic: no gait abnormality, no paralysis and no numbness Psychiatric: no hopelessness Endocrine: + fatigue Hematologic / Lymphatic: no lymphadenopathy Physical Exam Vital Signs (Past 24 Hours): Last Vital Signs Temp 36.8 C 07/30/18 04:05 Pulse 65 07/30/18 04:05 Resp 16 07/30/18 04:05 BP 137/87 07/30/18 04:05 Pulse Ox 98 07/30/18 04:05 Constitutional: well developed and well nourished; not morbidly obese ENMT: Nose: face symmetric Neck: trachea midline; no anterior neck swelling Respiratory: no respiratory distress and does not use accessory muscles Cardiovascular: Vessels: radial pulses present Gastrointestinal (Abdomen): Percussion/Palpation: abdomen soft; abdomen nontender inc c/d/i, serosang drainage at SUSAN site Musculoskeletal: Head/Neck/Chest: normocephalic Skin: normal turgor Neurologic: awake; not obtunded Speech / Cognition: normal cognition Psychiatric: Orientation: oriented x 3 Lymphatic: no lymphadenopathy Results & Data Laboratory Results Laboratory Results - last 48 hr 07/29/18 07/29/18 07/30/18 12:40 12:40 04:46 WBC 11.10 H 10.64 RBC 4.65 L 4.26 L Hgb 13.9 L 12.7 L Hct 40.2 L 36.9 L MCV 86.5 86.6 MCH 29.9 29.8 MCHC 34.6 34.4 RDW Std Deviation 40.6 41.0 RDW Coeff of Moraima 12.7 12.9 Plt Count 151 160 MPV 11.4 H 12.3 H Immature Gran % (Auto) 0.5 0.3 Neut % (Auto) 91.9 74.9 Lymph % (Auto) 5.9 13.3 [place] % (Auto) 1.6 11.2 Eos % (Auto) 0.0 0.2 Baso % (Auto) 0.1 0.1 Immature Gran # (Auto) 0.06 H 0.03 H Neut # (Auto) 10.20 H 7.98 H Lymph # (Auto) 0.65 L 1.41 [place] # (Auto) 0.18 1.19 H Eos # (Auto) 0.00 0.02 Baso # (Auto) 0.01 0.01 Sodium 139 Potassium 4.6 Chloride 107 Carbon Dioxide 22 Anion Gap 10.0 BUN 18 Creatinine 1.41 H Est Cr Clr Drug Dosing 71.6 Est GFR ( Amer) 67.3 Est GFR (Non-Af Amer) 58.1 BUN/Creatinine Ratio 13.0 Glucose 200 H Calcium 8.4 L 07/30/18 04:46 WBC RBC Hgb Hct MCV MCH MCHC RDW Std Deviation RDW Coeff of Moraima Plt Count MPV Immature Gran % (Auto) Neut % (Auto) Lymph % (Auto) [place] % (Auto) Eos % (Auto) Baso % (Auto) Immature Gran # (Auto) Neut # (Auto) Lymph # (Auto) [place] # (Auto) Eos # (Auto) Baso # (Auto) Sodium 138 Potassium 4.1 Chloride 104 Carbon Dioxide 29 Anion Gap 5.0 BUN 12 Creatinine 1.04 Est Cr Clr Drug Dosing 97.1 Est GFR ( Amer) 97.3 Est GFR (Non-Af Amer) 83.9 BUN/Creatinine Ratio 11.6 Glucose 135 H Calcium 8.3 L
[2018-07-30] MEDS: DOCUSATE SODIUM 100 MG CAP PO SCH (08:51)
[2018-07-30] MEDS: HEPARIN SOD 5,000 UNIT/0.5 ML VIAL SQ SCH (08:52)
[2018-07-30] MEDS ORDERED: SERTRALINE HCL 50 MG TABLET PO SCH (09:00)
[2018-07-30] MEDS: FAMOTIDINE 20 MG in SYRINGE 3 ML IV SCH (09:01)
--- NOTE | 2018-07-30 09:01 | Anesthesiology Progress Note ---
Date of Service July 30, 2018 Anesthesia Post Procedure Vital Signs Vital Signs: Temp Pulse Pulse Pulse Resp BP Pulse Ox 07/30/18 04:05 36.8 C 65 16 137/87 98 07/29/18 22:33 36.8 C 70 16 135/75 95 07/29/18 16:50 36.5 C 79 16 138/81 99 07/29/18 15:50 36.7 C 77 16 123/77 97 07/29/18 14:58 36.5 C 91 H 14 123/79 95 07/29/18 14:20 36.7 C 93 H 14 146/78 H 96 07/29/18 13:50 36.6 C 83 14 147/87 H 96 07/29/18 13:30 77 17 145/84 H 99 07/29/18 13:25 36.3 C L 88 17 158/96 H 98 07/29/18 13:15 92 H 20 160/87 H 99 07/29/18 13:05 78 15 166/90 H 94 07/29/18 12:55 82 14 152/82 H 94 07/29/18 12:45 86 30 H 152/78 H 100 07/29/18 12:35 80 21 123/69 100 07/29/18 12:27 36.4 C L 94 H 16 137/86 99 Pulse Ox 07/30/18 04:05 07/29/18 22:33 07/29/18 16:50 07/29/18 15:50 07/29/18 14:58 07/29/18 14:20 07/29/18 13:50 96 07/29/18 13:30 07/29/18 13:25 07/29/18 13:15 07/29/18 13:05 07/29/18 12:55 07/29/18 12:45 07/29/18 12:35 07/29/18 12:27 Pain Intensity Abdomen: Pain Intensity: 7 Notes Mental Status: alert / awake / arousable Nausea / Vomiting: adequately controlled Pain: adequately controlled Airway Patency, RR, SpO2: stable & adequate BP & HR: stable & adequate Hydration State: stable & adequate
[2018-07-30 09:06] VITALS: BP 138/90; PULSE 61; TEMP 97.7; O2SAT 99
[2018-07-30] MEDS ORDERED: FAMOTIDINE 20 MG TAB PO SCH (21:00)
--- NOTE | 2018-07-31 15:49 | Discharge Summary ---
Date of Service August 17, 2018 Admission HPI Per Admitting Provider Patient with high grade prostate cancer, local abnormal LN on PET scan, admitted for surgical extirpation with RALRP. Please see H&P for further details Discharge Data Procedures Performed Operation Date: 07/29/18 07:30 Actual Procedures p Robotic-Assisted Laparoscopic Radical Prostatectomy with wide excision, bilateral pelvic lymph node dissection(Not Applicable) - Ashish Cosme MD s placement of suprapubic catheter - Ashish Cosme MD
--- NOTE | 2018-08-13 09:01 | Discharge Summary ---
Date of Service August 13, 2018 Admission HPI Per Admitting Provider Patient with high grade prostate cancer, local abnormal LN on PET scan, admitted for surgical extirpation with RALRP. Please see H&P for further details Admission Exam (Per Admitting) Constitutional well developed and well nourished; not morbidly obese ENMT Nose: face symmetric Neck trachea midline; no anterior neck swelling Respiratory no respiratory distress and does not use accessory muscles Cardiovascular Vessels: radial pulses present Gastrointestinal (Abdomen) Percussion/Palpation: abdomen soft; abdomen nontender Musculoskeletal Head/Neck/Chest: normocephalic Skin normal turgor Neurologic awake; not obtunded Speech / Cognition: normal cognition Psychiatric Orientation: oriented x 3 Lymphatic no lymphadenopathy Discharge Data Procedures Performed Operation Date: 07/29/18 07:30 Actual Procedures p Robotic-Assisted Laparoscopic Radical Prostatectomy with wide excision, bilateral pelvic lymph node dissection(Not Applicable) - Ashihs Cosme MD s placement of suprapubic catheter - Ashish Cosme MD Hospital Course (1) Prostate cancer: Patient underwent radical dissection as planned. See OP note for further details. Diet and activity advanced without event, considered stable for DC home POD#1. Discharge Instructions See DC instruction list.
== END 2018-07-30 16:00 | disposition home or self-care (01) | DRG 708 ==
LOC: ASU 05:42 → 3N 12:09